=== PATIENT | female | born 2005 | race Caucasian/White ===

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

== ENCOUNTER 2023-01-02 03:42 | Emergency (ER) | payer OTHER ==
[2023-01-02 04:20] VITALS: BP 124/86; PULSE 79; RESP 18; TEMP 98.1; BMI 24.7
[2023-01-02 04:49] LABS: EPI CELLS 11 /uL (0-25.1); HYALINE CASTS 66 /uL (0-3.1); URINE APPEARANCE TURBID; URINE BILIRUBIN NEGATIVE (NEGATIVE); URINE COLOR ORANGE; URINE GLUCOSE (UA) NEGATIVE (NEGATIVE); URINE KETONE NEGATIVE (NEGATIVE); URINE LEUK ESTERASE 3+ (NEGATIVE); URINE NITRITE POSITIVE (NEGATIVE); URINE PROTEIN 2+ (NEGATIVE); URINE WBC 1766 /uL (0-25.8)
[2023-01-02 04:50] LABS: HCG,QUALITATIVE URINE Negative
[2023-01-02] MEDS ORDERED: PHENAZOPYRIDINE HCL 100 MG TABLET (FP) PO ONE (05:31)
[2023-01-02] MEDS ORDERED: PHENAZOPYRIDINE HCL 100 MG TABLET (FP) ONE (05:34)
[2023-01-02] MEDS ORDERED: NITROFURANTOIN MACROCRYSTAL 50 MG CAPSULE (FP) ONE (05:34)
[2023-01-02] MEDS ORDERED: NITROFURANTOIN MACROCRYSTAL 50 MG CAPSULE (FP) PO ONE (05:45)
[2023-01-02 09:44] LABS: URINE BACTERIA 1303.1 /uL (0-1359); URINE RBC 33111.4 /uL (0-23.9)
== END 2023-01-02 05:44 | disposition home or self-care (01) ==
LOC: JER 03:42
DX: N30.01 Acute cystitis with hematuria (principal); B99.9 Unspecified infectious disease; R30.9 Painful micturition, unspecified; R30.0 Dysuria; F41.9 Anxiety disorder, unspecified; R10.30 Lower abdominal pain, unspecified
CPT/HCPCS: 81003; 84703; 87086; 87186; 99283-25